=== PATIENT | male | born 1980 | race Caucasian/White ===

== ENCOUNTER 2022-01-29 21:14 | Emergency (ER) | payer OTHER ==
[2022-01-29] MEDS ORDERED: Bacitracin Oint 1 GM U/D Packet TOP ONE (21:21)
[2022-01-29] MEDS ORDERED: Lidocaine 1% with EPINEPHrine 1:100,000 50 ML MDV INFILT STA (21:21)
[2022-01-29] MEDS ORDERED: Diphtheria,Pertussis(Acell),Tetanus Vaccine 0.5 ML Syringe IM ONE (21:54)
== END 2022-01-29 22:07 | disposition home or self-care (01) ==
LOC: JP.ED 21:14
DX: S01.111A Laceration without foreign body of right eyelid and periocular area, initial encounter (principal); Z23 Encounter for immunization; X58.XXXA Exposure to other specified factors, initial encounter
CPT/HCPCS: 12013; 13132; 90471; 90715; 99281; 99282-25